=== PATIENT | female | born 1975 | race African-American/Black ===

== ENCOUNTER 2023-12-11 18:34 | Emergency (ER) | payer MEDICAID, OTHER ==
[~2023-12-11] VITALS: Ht 167.6 cm; Wt 65.0 kg
[2023-12-11 18:35] VITALS: TEMP 98.5; O2SAT 98
[2023-12-11] MEDS ORDERED: IBUPROFEN 600MG TABLET PO ONE (20:15)
[2023-12-11] MEDS ORDERED: HYDROCODONE/ACETAMINOPHEN 5/325MG TABLET PO ONE (20:15)
[2023-12-11 21:50] LABS: CLARITY URINE CLEAR (CLEAR); COLOR URINE YELLOW (YELLOW); GLUCOSE URINE NEGATIVE (NEGATIVE); KETONES URINE NEGATIVE (NEGATIVE); LEUKOCYTE ESTERASE URINE NEGATIVE (NEGATIVE); NITRITE URINE NEGATIVE (NEGATIVE); OCCULT BLOOD URINE NEGATIVE (NEGATIVE); PH URINE 7.5 (4.5-8.0); PROTEIN URINE NEGATIVE (NEGATIVE); SPECIFIC GRAVITY URINE 1.014 (1.005-1.030)
[2023-12-11 22:02] VITALS: BP 140/88; PULSE 78; RESP 16
[2023-12-11] MEDS: IBUPROFEN 600MG TABLET PO NR (22:02)
[2023-12-11] MEDS: HYDROCODONE/ACETAMINOPHEN 5/325MG TABLET PO NR (22:02)
[2023-12-11] MEDS ORDERED: HYDR-4001 MT (22:03)
[2023-12-11] MEDS ORDERED: IBUP-1523 MT (22:03)
== END 2023-12-11 22:46 | disposition home or self-care (01) ==
LOC: ER 18:34
DX: M54.50 Low back pain, unspecified (principal); J45.909 Unspecified asthma, uncomplicated; F32.9 Major depressive disorder, single episode, unspecified; E11.9 Type 2 diabetes mellitus without complications; I10 Essential (primary) hypertension
CPT/HCPCS: 72100; 81003; 99284